=== PATIENT | male | born 1940 | race Caucasian/White ===

== ENCOUNTER 2017-05-31 03:36 | Emergency (ER) | payer MEDICARE ==
[~2017-05-31] VITALS: Ht 182.9 cm; Wt 91.5 kg
[2017-05-31 03:37] VITALS: BP 173/84
== END 2017-05-31 06:46 | disposition home or self-care (01) ==
LOC: ED 06:40
DX: N40.1 Benign prostatic hyperplasia with lower urinary tract symptoms (principal)
CPT/HCPCS: 51700; 99284